=== PATIENT | female | born 1980 | race Caucasian/White ===

== ENCOUNTER 2019-05-06 15:52 | Emergency (ER) | payer OTHER, MEDICAID, SELFPAY ==
[2019-05-06] VITALS (11 sets, daily range): BP systolic 85–98; BP diastolic 51–77; PULSE 62–103; RESP 12–21; TEMP 37; O2SAT 93–100
--- NOTE | 2019-05-06 17:10 | PC.NURSE ---
History is obtained from pt's aunt with who she resides. Aunt states Pt is responsible for her own medications. One medication has not been refilled x 1 year, the other since March 13 though w/ 10 pills remaining. Aunt states she reminds her to take them but does not watch her take them. Aunt states pt is on SS disability, does not drive. She does not know why. Aunt does not know who her doctor is. Pt appears very dirty. Clothing /socks/shoes caked w/ dirt and urine. Pt has been incontinent however there is evidence of dried urine.
[2019-05-06] MEDS: LORazepam 2 MG/ML INJ (17:15)
[2019-05-06 17:19] LABS: Add Manual Diff / Slide Review NO; Basophils Absolute Auto 0 /uL (0-100); Basophils Percent Auto 0.2 % (0-2); Eosinophils Absolute Auto 0 /uL (0-450); Eosinophils Percent Auto 0.1 % (2-4); Hemoglobin 11.2 g/dL (12.0-16.0); Lymphocytes Absolute Auto 600 /uL (1100-4500); Lymphocytes Percent Auto 4.2 % (25-40); Mean Corpuscular HGB Conc 33.8 % (30-36); Mean Corpuscular Hemoglobin 27.9 PG (26-34); Mean Corpuscular Volume 82.6 fL (80-100); Monocytes Absolute Auto 700 /uL (0-900); Neutrophils Absolute Auto 12200 /uL (1500-7000); Neutrophils Percent Auto 90.5 % (50-75); Platelet Count 223 X10^3/uL (150-400); Red Cell Distribution Width 15.7 % (11.6-14.8); White Blood Cell Count 13.4 X10^3/uL (4.5-11.0)
--- NOTE | 2019-05-06 17:21 | DI.CT.S_ITS ---
PROCEDURE: CT HEAD/BRAIN WO CON INDICATIONS: seizure activity, multiple episodes. TECHNIQUE: Noncontrast 4.5 mm thick angled axial sections acquired from the foramen magnum to the vertex, with coronal and sagittal reformats. For radiation dose reduction, the following was used: automated exposure control, adjustment of mA and/or kV according to patient size. COMPARISON: None. FINDINGS: Image quality: Excellent. CSF spaces: Basal cisterns are patent. No extra-axial fluid collections. Ventricles are normal in size and shape. Brain: No midline shift. No intracranial masses or hemorrhage. Pineda-white matter interface is normal. Skull and face: Calvarium and visualized facial bones are intact, without suspicious lesions. Sinuses: Visualized sinuses and mastoids are clear. IMPRESSION: No CT evidence of acute intracranial pathology. Dictated by: Torres Murry M.D. on 05/06/2019 at 18:34 Approved by: Torres Murry M.D. on 05/06/2019 at 18:35
--- NOTE | 2019-05-06 17:23 | ED_ITS ---
HPI - Seizure General Chief Complaint: Seizure Stated Complaint: SEIZURES Time Seen by Provider: 05/06/19 17:20 Source: family Mode of arrival: Ambulatory Limitations: altered mental status History of Present Illness HPI Narrative: 38-year-old female comes to the emergency department with complaint of seizure activity. Patient has had a seizure last night, she had 2 today that were visualized by aunt. Patient herself was responding to stimuli although not answer questions. For myself. She did have seizure activity in front of me that appeared tonic clonic in nature and lasted for about 20 seconds. The aunt is a very poor historian. The patient's mother several years ago and the and has been caring for her recently after taking her from the uncle. She states she does not have any issues besides seizure disorder but also states that she was in the special [place]. Patient has a bottle of carb amazepine she has been out of her Keppra for at least several months because the pharmacy could not refill it any longer and the patient's aunt did not know to take her to to be seen to refill it. Patient sees Dr. teran for Neurology and this is noted from the bottle that was brought to the ER. Patient does have a primary care but the aunt does not know their name. She is not aware of any other medical problems besides seizure disorder. She did bring both bottles of medications which include Keppra 500 mg 1 tablet twice daily she does have carbamazepine 200 mg 1 tablet twice daily and has several more tablets available. Patient is not able to answer any questions currently. Related Data Home Medications Medication Instructions Recorded Confirmed carbamazepine 200 mg PO BID 05/06/19 05/06/19 diclofenac sodium 75 mg PO BID 05/06/19 05/06/19 levetiracetam [Keppra] 500 mg PO BID 05/06/19 05/06/19 Allergies Allergy/AdvReac Type Severity Reaction Status Date / Time No Known Drug Allergies Allergy Verified 05/06/19 16:00 Review of Systems Review of Systems ROS Unobtainable: Unobtainable due to mental status/LOC [facility] Medical History (Updated 05/06/19 @ 17:28 by Ryann Franco DO) Seizure disorder (Acute) Social History Smoking Status: Never smoker Social History Smoking Status: Never smoker Exam Narrative Exam Narrative: GEN: Pale female, patient is having active tonic-clonic movement of her upper extremities and head, patient appears to be in moderate distress. HEENT: Atraumatic, pupils are equal round reactive to light, unable to assess extraocular movements, nares are clear, TMs are clear with no fluid. Throat is clear without any exudates, erythema, tonsillar enlargement or uvular deviation HEART: Regular rate and rhythm without murmur, clicks, rubs. Pulses are equal in upper and lower extremities. LUNGS:Lungs clear to auscultation, no wheezes, rales, crackles, chest moves symmetrically, no tachypnea. ABD:bowel sounds normal, soft, non-tender, no guarding, rebound, rigidity, no masses noted, no hepatosplenomegaly :No CVA tenderness MSCL: Non-tender, no muscle atrophy, muscles strength 5/5 upper and lower extremities, full range of motion. NEURO:CN 2-12 intact, sensation normal, reflexes 2/4 upper and lower extremities. finger nose finger test normal, heel bowman test normal, romberg normal SKIN: no acute changes. Initial Vital Signs Initial Vital Signs: Vital Signs Temperature 98.6 F 05/06/19 15:56 Pulse Rate 103 H 05/06/19 15:56 Respiratory Rate 20 05/06/19 15:56 Blood Pressure 98/64 05/06/19 15:56 Pulse Oximetry 99 05/06/19 15:56 Course Orders Ordered: ED Orders 05/06/19 17:00 CMP [Comprehensive Metabolic Panel] Stat Carbamazepine Tegretol Level Stat Complete Blood Count AUTO DIFF Stat Ethanol (ETOH) Stat Magnesium Stat Prolactin Stat 05/06/19 17:20 EKG-12 Lead Stat 05/06/19 17:21 CT head/brain wo con Stat 05/06/19 17:50 Test Urine Stat Urinalysis and Microscopic Stat Urine Drug Screen, Rapid Stat Sodium Chloride (Normal Saline 0.9%) 1,000 mls @ 200 mls/hr IV BOLUS ONE Stop: 05/07/19 00:23 Last Admin: 05/06/19 19:32 Dose: 200 mls/hr Documented by: GLADYS Discontinued Medications Levetiracetam 1,750 mg/ Sodium (Chloride) 117.5 mls @ 470 mls/hr IV NOW ONE Stop: 05/06/19 17:21 Last Infusion: 05/06/19 18:05 Dose: 0 mls/hr Documented by: Admin: 05/06/19 17:47 Dose: 470 mls/hr Documented by: SHARRON Sodium Chloride (Normal Saline 0.9%) 1,000 mls @ 1,000 mls/hr IV BOLUS ONE Stop: 05/06/19 18:19 Last Infusion: 05/06/19 19:17 Dose: 0 mls/hr Documented by: Admin: 05/06/19 17:30 Dose: 1,000 mls/hr Documented by: SHARRON Vital Signs Vital signs: Vital Signs - 8 hr 05/06/19 15:56 05/06/19 17:10 05/06/19 17:43 Temperature 98.6 F Pulse Rate 103 H 88 88 Respiratory Rate 20 14 12 Blood Pressure 98/64 Blood Pressure [Right Arm] 94/66 95/61 Pulse Oximetry 99 97 93 05/06/19 17:49 05/06/19 19:01 05/06/19 19:18 Temperature Pulse Rate 88 80 80 Respiratory Rate 15 12 12 Blood Pressure Blood Pressure [Right Arm] 87/58 L 85/51 L 87/64 L Pulse Oximetry 98 95 98 MDM - Seizure Lab Data Result diagrams: 05/06/19 17:00 05/06/19 17:00 Labs: Lab Results 05/06/19 05/06/19 05/06/19 Range/Units 17:00 17:00 17:00 WBC 13.4 H (4.5-11.0) X10^3/uL RBC 4.00 (4.0-5.2) X10^6/uL Hgb 11.2 L (12.0-16.0) g/dL Hct 33.0 L (36-46) % MCV 82.6 (80-100) fL MCH 27.9 (26-34) PG MCHC 33.8 (30-36) % RDW 15.7 H (11.6-14.8) % Plt Count 223 (150-400) X10^3/uL Neut % (Auto) 90.5 H (50-75) % Lymph % (Auto) 4.2 L (25-40) % Maverick % (Auto) 5.0 (3-14) % Eos % (Auto) 0.1 L (2-4) % Baso % (Auto) 0.2 (0-2) % Neut # (Auto) 20993 H (0193-0357) /uL Lymph # (Auto) 600 L (5335-3153) /uL Maverick # (Auto) 700 (0-900) /uL Eos # (Auto) 0 (0-450) /uL Baso # (Auto) 0 (0-100) /uL Sodium 140 (137-145) mmol/L Potassium 3.8 (3.4-5.1) mmol/L Chloride 108 H (98-107) mmol/L Carbon Dioxide 20 L (22-32) mmol/L BUN 9 (7-17) mg/dL Creatinine 0.70 (0.52-1.04) mg/dL Estimated GFR > 60.0 (>60) mL/min BUN/Creatinine Ratio 12.9 (6-22) Glucose 98 (70-100) mg/dL Calcium 8.9 (8.4-10.2) mg/dL Magnesium 2.1 (1.6-2.3) mg/dL Total Bilirubin 0.2 (0.2-1.3) mg/dL AST 32 (14-36) IU/L ALT 9 (9-52) IU/L Alkaline Phosphatase 62 (38-126) U/L Total Protein 7.1 (6.3-8.2) g/dL Albumin 3.9 (3.5-5.0) g/dL Globulin 3.2 (1.7-4.1) g/dL Albumin/Globulin Ratio 1.2 (1.0-2.8) Prolactin 19.3 H (3.0-18.6) ng/mL Urine Color Urine Appearance Urine pH (4.5-8.0) Ur Specific [place] (1.000-1.035) Urine Protein (Negative) Urine Glucose (UA) (Negative) g/dL Urine Ketones (NEGATIVE) Urine Occult Blood (Negative) Urine Nitrate (Negative) Urine Bilirubin (NEGATIVE) Urine Urobilinogen (0.2) E.U./dL Ur Leukocyte Esterase (NEGATIVE) Urine RBC (0-5/HPF) Urine WBC (0-5/HPF) Ur Squamous Epith Cells (0-5/HPF) Amorphous Sediment Urine Bacteria (None) Hyaline Casts (None) Urine Mucus (Negative) Ur Culture Indicated? Urine Test (Negative) U Morph 300 ng/mL cutoff (Negative) Ur Oxycodone Screen (Negative) Urine Methadone Screen (Negative) Ur Barbiturates Screen (Negative) U Tricyclic Antidepress (Negative) Ur Phencyclidine Scrn (Negative) Ur Amphetamines Screen (Negative) U Methamphetamines Scrn (Negative) Ur MDMA Scrn (Ecstasy) (Negative) U Benzodiazepines Scrn (Negative) Urine Cocaine Screen (Negative) U Marijuana (THC) Screen (Negative) Ethyl Alcohol ( - 10) mg/dL 05/06/19 05/06/19 05/06/19 Range/Units 17:00 17:50 17:50 WBC (4.5-11.0) X10^3/uL RBC (4.0-5.2) X10^6/uL Hgb (12.0-16.0) g/dL Hct (36-46) % MCV (80-100) fL MCH (26-34) PG MCHC (30-36) % RDW (11.6-14.8) % Plt Count (150-400) X10^3/uL Neut % (Auto) (50-75) % Lymph % (Auto) (25-40) % Maverick % (Auto) (3-14) % Eos % (Auto) (2-4) % Baso % (Auto) (0-2) % Neut # (Auto) (9416-3470) /uL Lymph # (Auto) (3870-8254) /uL Maverick # (Auto) (0-900) /uL Eos # (Auto) (0-450) /uL Baso # (Auto) (0-100) /uL Sodium (137-145) mmol/L Potassium (3.4-5.1) mmol/L Chloride (98-107) mmol/L Carbon Dioxide (22-32) mmol/L BUN (7-17) mg/dL Creatinine (0.52-1.04) mg/dL Estimated GFR (>60) mL/min BUN/Creatinine Ratio (6-22) Glucose (70-100) mg/dL Calcium (8.4-10.2) mg/dL Magnesium (1.6-2.3) mg/dL Total Bilirubin (0.2-1.3) mg/dL AST (14-36) IU/L ALT (9-52) IU/L Alkaline Phosphatase (38-126) U/L Total Protein (6.3-8.2) g/dL Albumin (3.5-5.0) g/dL Globulin (1.7-4.1) g/dL Albumin/Globulin Ratio (1.0-2.8) Prolactin (3.0-18.6) ng/mL Urine Color Urine Appearance Urine pH (4.5-8.0) Ur Specific [place] (1.000-1.035) Urine Protein (Negative) Urine Glucose (UA) (Negative) g/dL Urine Ketones (NEGATIVE) Urine Occult Blood (Negative) Urine Nitrate (Negative) Urine Bilirubin (NEGATIVE) Urine Urobilinogen (0.2) E.U./dL Ur Leukocyte Esterase (NEGATIVE) Urine RBC (0-5/HPF) Urine WBC (0-5/HPF) Ur Squamous Epith Cells (0-5/HPF) Amorphous Sediment Urine Bacteria (None) Hyaline Casts (None) Urine Mucus (Negative) Ur Culture Indicated? Urine Test Negative (Negative) U Morph 300 ng/mL cutoff Negative (Negative) Ur Oxycodone Screen Negative (Negative) Urine Methadone Screen Negative (Negative) Ur Barbiturates Screen Negative (Negative) U Tricyclic Antidepress Negative (Negative) Ur Phencyclidine Scrn Negative (Negative) Ur Amphetamines Screen Negative (Negative) U Methamphetamines Scrn Negative (Negative) Ur MDMA Scrn (Ecstasy) Negative (Negative) U Benzodiazepines Scrn Negative (Negative) Urine Cocaine Screen Negative (Negative) U Marijuana (THC) Screen Negative (Negative) Ethyl Alcohol < 10 ( - 10) mg/dL 05/06/19 Range/Units 17:50 WBC (4.5-11.0) X10^3/uL RBC (4.0-5.2) X10^6/uL Hgb (12.0-16.0) g/dL Hct (36-46) % MCV (80-100) fL MCH (26-34) PG MCHC (30-36) % RDW (11.6-14.8) % Plt Count (150-400) X10^3/uL Neut % (Auto) (50-75) % Lymph % (Auto) (25-40) % Maverick % (Auto) (3-14) % Eos % (Auto) (2-4) % Baso % (Auto) (0-2) % Neut # (Auto) (5766-1759) /uL Lymph # (Auto) (2254-1614) /uL Maverick # (Auto) (0-900) /uL Eos # (Auto) (0-450) /uL Baso # (Auto) (0-100) /uL Sodium (137-145) mmol/L Potassium (3.4-5.1) mmol/L Chloride (98-107) mmol/L Carbon Dioxide (22-32) mmol/L BUN (7-17) mg/dL Creatinine (0.52-1.04) mg/dL Estimated GFR (>60) mL/min BUN/Creatinine Ratio (6-22) Glucose (70-100) mg/dL Calcium (8.4-10.2) mg/dL Magnesium (1.6-2.3) mg/dL Total Bilirubin (0.2-1.3) mg/dL AST (14-36) IU/L ALT (9-52) IU/L Alkaline Phosphatase (38-126) U/L Total Protein (6.3-8.2) g/dL Albumin (3.5-5.0) g/dL Globulin (1.7-4.1) g/dL Albumin/Globulin Ratio (1.0-2.8) Prolactin (3.0-18.6) ng/mL Urine Color Yellow Urine Appearance Sl cloudy Urine pH 5.0 (4.5-8.0) Ur Specific [place] 1.025 (1.000-1.035) Urine Protein Trace H (Negative) Urine Glucose (UA) Negative (Negative) g/dL Urine Ketones Trace H (NEGATIVE) Urine Occult Blood Trace-lysed (Negative) Urine Nitrate Negative (Negative) Urine Bilirubin Negative (NEGATIVE) Urine Urobilinogen 0.2 (0.2) E.U./dL Ur Leukocyte Esterase Negative (NEGATIVE) Urine RBC 0-1/hpf (0-5/HPF) Urine WBC 0-1/hpf (0-5/HPF) Ur Squamous Epith Cells None seen (0-5/HPF) Amorphous Sediment 1+ Urine Bacteria Occasional (0-1) (None) Hyaline Casts 1-5/lpf (None) Urine Mucus 1+ H (Negative) Ur Culture Indicated? Cult not indicated Urine Test (Negative) U Morph 300 ng/mL cutoff (Negative) Ur Oxycodone Screen (Negative) Urine Methadone Screen (Negative) Ur Barbiturates Screen (Negative) U Tricyclic Antidepress (Negative) Ur Phencyclidine Scrn (Negative) Ur Amphetamines Screen (Negative) U Methamphetamines Scrn (Negative) Ur MDMA Scrn (Ecstasy) (Negative) U Benzodiazepines Scrn (Negative) Urine Cocaine Screen (Negative) U Marijuana (THC) Screen (Negative) Ethyl Alcohol ( - 10) mg/dL ECG Data Attestation: I personally reviewed and interpreted this ECG as follows: Interpretation: Sinus tachycardia rate of 101 P are 152 QRS is 79 and QTC of 404. No acute ST changes. MDM Narrative Medical decision making narrative: patient ambulated to room with nursing staff but unsteady, patient did attempt to follow commands but was minimally verbally interactive. Very difficult to get baseline from and about patient's normal baseline function. It sounds like she normally walks and speaks on her own although states that she is totally normal except for seizures but then also states that she has been in the special [place]. She has described at least 3 witnessed seizures in the last 24 hours with a 4th in the department. Patient's labs show white count prolactin of 19 with otherwise normal electrolytes except for a chloride of 108 and a CO2 of 20. UA and UDS are negative with negative etoh. Carbamazepine level is pending. Head CT shows Patient like she had returned to baseline from the aunt's description between last night and this morning but that she was not necessarily throughout today. Patient was loaded with Keppra. She has continued to be monitored for any further seizure activity. I spoke with Neurology, patient has prescriptions from Dr. Teran, Dr. Mcgrath is covering patient has a note from 2 years ago. She had known seizure disorder since her teens some memory issues as well as possible learning disabilities. Patient was on carbamazepine and Keppra. She has family history of epilepsy. She has had a history where she will have m ultiple seizures in a row intermittently. She had been plan for EEG and MRI but was never obtained. She was accompanied by her cousin at that time and from the no appears that she is normally interactive verbally and physically but maybe has some mild to moderate developmental delay. Dr. Mcgrath recommends 1500 mg loading dose patient has had 1700, and 750 mg b.i.d, they are happy to follow along with the patient or if she stabilized follow-up on Monday or Monday. We discussed that this may be an Adult protective Services case as patient history is very difficult to obtain from family who likely needs to be making sure patient is taking medications and actively involved in her care. We do not have capability for EEG here on the likelihood that it will happen as an outpatient is very low and called [facility] as they do have availability per Dr. Mcgrath. Awaiting callback from neurology. Signed out to Dr. Beltran while deciding placement either here or at another facility that has EEG capabilities. Abby from [employer] is calling in APS. I spoke with Christi at [phone] who was medical proxy but has since moved and feels patient may need adult nursing home for safety. Discharge Plan Departure Clinical Impression: Seizure Prescriptions: No Action carbamazepine 200 mg tablet 200 mg PO BID RF: 0 diclofenac sodium 75 mg tablet,delayed release (DR/EC) 75 mg PO BID RF: 0 levetiracetam [Keppra] 500 mg Tablet 500 mg PO BID RF: 0
[2019-05-06 17:25] LABS: Magnesium 2.1 mg/dL (1.6-2.3)
[2019-05-06 17:26] LABS: Alanine Aminotransferase 9 IU/L (9-52); Albumin 3.9 g/dL (3.5-5.0); Albumin Globulin Ratio 1.2 (1.0-2.8); Alkaline Phosphatase 62 U/L (38-126); Aspartate Aminotransferase 32 IU/L (14-36); BUN Creatinine Ratio 12.9 (6-22); Bilirubin Total 0.2 mg/dL (0.2-1.3); Blood Urea Nitrogen 9 mg/dL (7-17); Calcium 8.9 mg/dL (8.4-10.2); Carbon Dioxide 20 mmol/L (22-32); Chloride 108 mmol/L (98-107); Estimated Glomerular Filt Rate > 60.0 mL/min (>60); Globulin 3.2 g/dL (1.7-4.1); Glucose 98 mg/dL (70-100); HEMOLYSIS < 15 (0-50); Potassium 3.8 mmol/L (3.4-5.1); Sodium 140 mmol/L (137-145); Total Protein 7.1 g/dL (6.3-8.2)
[2019-05-06] MEDS: SODIUM CHLORIDE 0.9% 1,000 ML 1000 ML IV (17:30)
[2019-05-06 17:42] LABS: Prolactin 19.3 ng/mL (3.0-18.6)
[2019-05-06 17:45] LABS: Ethanol (ETOH) < 10 mg/dL
[2019-05-06 18:05] LABS: Appearance Urine UA SL CLOUDY; Bilirubin Urine UA NEGATIVE (NEGATIVE); Color Urine UA YELLOW; Glucose Urine UA NEGATIVE (Negative); Ketones Urine UA TRACE (NEGATIVE); Leukocyte Esterase Urine UA NEGATIVE (NEGATIVE); Nitrite Urine UA NEGATIVE (Negative); Occult Blood Urine UA TRACE-LYSED (Negative); Protein Urine UA TRACE (Negative); Specific Gravity Urine UA 1.025 (1.000-1.035); Urobilinogen Urine UA 0.2 E.U./dL (0.2)
[2019-05-06 18:07] LABS: UR Morphine/Opiate cutoff 300 Negative (Negative); Ur Creatinine Normal (Normal); Ur Specific Gravity Normal (Normal); Urine Amphetamines Negative (Negative); Urine Barbiturates Negative (Negative); Urine Benzodiazepines Negative (Negative); Urine Cocaine Negative (Negative); Urine MDMA Negative (Negative); Urine Methadone Negative (Negative); Urine Methamphetamines Negative (Negative); Urine Oxycodone Negative (Negative); Urine Phencyclidine Negative (Negative); Urine Tetrahydrocannabinol Negative (Negative); Urine Tricyclic Antidepressant Negative (Negative); Urine pH Normal (Normal)
[2019-05-06 18:08] LABS: Pregnancy Test Urine Negative (Negative)
[2019-05-06 18:12] LABS: Amorphous Sediment Urine 1+; Bacteria Urine Occasional (0-1); Culture Indicated Urine Cult Not Indicated; Hyaline Casts Urine 1-5/LPF; Mucus Urine 1+ (Negative); RBC Urine 0-1/HPF (0-5/HPF); Squamous Epithelial Cell Urine None Seen (0-5/HPF); WBC Urine 0-1/HPF (0-5/HPF)
--- NOTE | 2019-05-06 19:11 | PC.NURSE ---
GOVERNMENT RELATIONS ANALYST/HOUSEKEEPING ROOM ATTENDANT: I gave patient a bed bath from head to toe. Pt. clothing was completely soiled. Evidence of dry urine on pants, underwear, and socks. Patients had dirt on face, hands, underneath nail, and feet. Pt. has a rash from outer vagina all the way to her bottocks. Pt. hair is covered in dandruff. Pt. Clothing has a heavy odor of cigaret smoke. Pt. tolerated bed bath well. RN notified.
--- NOTE | 2019-05-06 19:27 | PC.NURSE ---
provider notified of ongoing hypotension with 1 liter infused. Provider order recieved for 200/hr NS.
[2019-05-06] MEDS: SODIUM CHLORIDE 0.9% 1,000 ML 200 ML IV (19:32)
--- NOTE | 2019-05-06 20:12 | CM.SWNOTE ---
BARN BOSS NOTE BARN BOSS received information from staff and APS report filed.See MAIL CARRIER AND CLERK note for specific information regarding the self-neglect and inability for aunt to appropriately care for her. Pt's cousin and DPOA Christi Banner [phone] informed BARN BOSS that her aunt is trying to help, but unable to provide the needed care. She is aware of the APS report and believes pt is no longer able to be cared for outside of some type of residence.
--- NOTE | 2019-05-06 21:36 | PC.NURSE ---
Pt remains difficult to arouse, she makes eye contact, remains non verbal, and goes back to sleep.
--- NOTE | 2019-05-06 23:34 | PC.NURSE ---
normal saline to infuse in transport
--- NOTE | 2019-05-07 00:55 | PC.NURSE ---
called next of kin to inform of transfer to [facility]. Next of kin will update aunt yaakov.
--- NOTE | 2019-05-07 16:07 | CM.SWNOTE ---
REPLACER Note: Per notes, patient transferred to [facility] last pm. Received call from CM department at [facility] requesting information pertaining to APS referral for continued medical care purposes. Patient now patient at [facility]. Provided [facility] with name/number of assigned APS worker/Christiano feldman# [phone]. Also faxed them REPLACER note and HYDROGEN BRAZE FURNACE OPERATOR note pertaining to patient's hygiene. All other records were transferred with patient last pm. No additional information requested. HITESH
[2019-05-08 15:09] LABS: Carbamazepine Tegretol Level < 2.0 mg/L (4.0-12.0)
== END 2019-05-06 23:38 | disposition short-term general hospital (02) ==
PROVIDERS: Emergency Medicine; Emergency Provider Emergency Medicine
DX: R56.9 Unspecified convulsions (principal)
CPT/HCPCS: 36415; 51701; 70450; 80053; 80156; 80305; 80320; 81001; 81025; 83735; 84146; 85025; 93005; 96361; 96365; 99285; J1953; J2060

== ENCOUNTER 2019-06-27 09:23 | Emergency (ER) | payer OTHER, MEDICAID, SELFPAY ==
[2019-06-27 09:38] VITALS: BP 91/65; PULSE 82; RESP 18; O2SAT 100
--- NOTE | 2019-06-27 09:45 | ED.RECABL ---
HPI - Recheck/Abnormal Lab/Rx General Chief Complaint: Recheck/Abnormal Lab/Rx Stated Complaint: medication refill Time Seen by Provider: 06/27/19 09:34 Source: patient Mode of arrival: Ambulatory Limitations: no limitations History of Present Illness HPI narrative: Patient comes emergency department requesting refills of her Keppra and carbamazepine. Patient normally gets her medications from a private pharmacy which is closed today, given that it is Thanksgiving. The patient states that she thought she could just order the medications today, and did realize it was Thanksgiving, and her pharmacy is closed. The patient denies any seizure activity. She is not ill in any way. She denies pain. No shortness of breath. No other complaints at this time. Her last dose of her medications were last night. She is on Keppra 750 mg b.i.d. and carbamazepine 200 mg b.i.d.. Related Data Home Medications Medication Instructions Recorded Confirmed carbamazepine 200 mg PO BID 05/06/19 05/06/19 diclofenac sodium 75 mg PO BID 05/06/19 05/06/19 levetiracetam [Keppra] 500 mg PO BID 05/06/19 05/06/19 Previous Rx's Medication Instructions Recorded carbamazepine 200 mg PO BID #10 cap 06/27/19 levetiracetam [Keppra] 750 mg PO BID #10 tab 06/27/19 Allergies Allergy/AdvReac Type Severity Reaction Status Date / Time No Known Drug Allergies Allergy Verified 05/06/19 16:00 Review of Systems Review of Systems ROS Unobtainable: All systems reviewed & are unremarkable except as noted in HPI and below Constitutional Constitutional: Denies chills, Denies fatigue, Denies fever(s), Denies frequent falls, Denies lethargy and Denies weakness Eyes Eyes: Denies change in vision, Denies eye discharge, Denies irritation and Denies loss of vision ENT Ears, Nose, Mouth, and Throat: Denies change in voice, Denies dizziness, Denies neck pain, Denies sore throat and Denies throat swelling Cardiovascular Cardiovascular: Denies chest pain, Denies irregular heart rhythm, Denies lightheadedness, Denies palpitations, Denies dyspnea, Denies dyspnea on exertion and Denies orthopnea Respiratory Respiratory: Denies cough, Denies dyspnea, Denies dyspnea on exertion and Denies wheezing Gastrointestinal Gastrointestinal: Denies abdominal pain, Denies change in bowel habits, Denies diarrhea, Denies nausea and Denies vomiting Genitourinary Genitourinary: Denies hematuria, Denies flank pain, Denies urinary incontinence and Denies urinary urgency Musculoskeletal Musculoskeletal: Denies back pain, Denies muscle weakness, Denies neck pain, Denies numbness and Denies tingling Integumentary/Breasts Skin/Breast: Denies pruritus, Denies erythema, Denies rash and Denies wounds Neurologic Neurologic: Denies behavioral changes, Denies confusion, Denies dizziness, Denies frequent falls, Denies loss of vision, Denies numbness, Denies tingling and Denies weakness Psychiatric Psychiatric: Denies anxiety, Denies behavioral changes, Denies confusion, Denies depression, Denies homicidal ideation and Denies suicidal ideation Endocrine Endocrine: Denies fatigue, Denies flushing and Denies palpitations Hematologic/Lymphatic Hematologic/Lymphatic: Denies easy bruising Allergic/Immunologic Allergic/Immunologic: Denies urticaria, Denies throat swelling and Denies wheezing Patient History Medical History Seizure disorder (Acute) Social History Smoking Status: Never smoker Substance Use Type: does not use Exam Initial Vital Signs Initial Vital Signs: Vital Signs Pulse Rate 82 06/27/19 09:38 Respiratory Rate 18 06/27/19 09:38 Blood Pressure 91/65 06/27/19 09:38 Pulse Oximetry 100 06/27/19 09:38 Const General: cooperative and well developed Nutritional Appearance: well nourished Orientation: alert, awake, oriented x3 and not confused [facility] Head: normocephalic and atraumatic Ears: external ears normal Nose: external nose normal and No nasal discharge Face and sinus: face symmetric and No dry mucous membranes Mouth: oral mucosae normal and moist mucous membranes Teeth and gingiva: dentition normal Eyes General: appearance normal, both eyes and all related structures Eyelids: eyelids normal Conjunctivae: conjunctivae normal Sclera: sclerae normal Pupils: PERRL EOM: EOM intact bilaterally Neck Neck: normal visual inspection, trachea midline, No lymphadenopathy, No midline deformity and No JVD Lymphatic: No lymphedema Chest Chest: normal inspection of the chest Resp Effort & Inspection: normal respiratory effort, able to speak in complete sentences, no respiratory distress and no use of accessory muscles Auscultation: clear to auscultation bilaterally, no rales, no rhonchi and no wheezes Cardio Rate: regular rate Rhythm: regular rhythm Heart Sounds: no click, no gallops, no murmurs and no rubs Pulses: normal peripheral pulses Back/Spine/Pelvis Back: No CVA tenderness Cervical Spine: cervical ROM normal and No pain with cervical ROM Thoracic/Lumbar Spine: thoracic and lumbar spine normal to inspection Skin General: no rashes or lesions noted, No jaundice and No petechiae Neuro General: alert, oriented x3, gait normal and no focal motor deficits Speech: speech normal Extrem General: full ROM, no clubbing, cyanosis or edema, no pedal edema and no calf tenderness Psych Appearance: well kempt Mental Status: mental status grossly normal Attitude: cooperative Thought Content: normal and suicidality Judgment: judgment good Course Course Course Narrative: Short term refills were given on both the patient's medications. She states she will order her usual dispensation tomorrow from her regular pharmacy. Vital Signs Vital signs: Vital Signs - 8 hr 06/27/19 09:38 Pulse Rate 82 Respiratory Rate 18 Blood Pressure 91/65 Pulse Oximetry 100 MDM - Recheck/Abnormal Lab/Rx Medical Records Attestation: I reviewed the patient's medical records. Discharge Plan Departure Patient Disposition: Home Clinical Impression: Encounter for medication refill Activity Restrictions/Additional Instructions: Please follow up with your doctor for any further medication questions. Prescriptions: New carbamazepine 200 mg capsule, ER multiphase 12 hr 200 mg PO BID Qty: 10 RF: 0 levetiracetam [Keppra] 750 mg tablet 750 mg PO BID Qty: 10 RF: 0 No Action carbamazepine 200 mg tablet 200 mg PO BID RF: 0 diclofenac sodium 75 mg tablet,delayed release (DR/EC) 75 mg PO BID RF: 0 levetiracetam [Keppra] 500 mg Tablet 500 mg PO BID RF: 0
== END 2019-06-27 10:07 | disposition home or self-care (01) ==
LOC: ED 09:51
PROVIDERS: Emergency Provider Emergency Medicine
DX: Z76.0 Encounter for issue of repeat prescription (principal)
CPT/HCPCS: 99282; 99283